=== PATIENT | male | born 1990 | race African-American/Black ===

== ENCOUNTER 2016-09-16 10:01 | Emergency (ER) | payer MEDICAID ==
[~2016-09-16] VITALS: Ht 170.2 cm; Wt 77.1 kg
[2016-09-16 10:21] VITALS: BP 112/76
[2016-09-16] MEDS ORDERED: LIDOCAINE 1% HCL (LOCAL ANESTH.) INJ 20ML MDV IJ ONE (10:45)
[2016-09-16] MEDS ORDERED: TETANUS-DIPTH-ACEL PERTUSSIS 0.5ML SYRG IM ONE (10:45)
[2016-09-16] MEDS ORDERED: BACITRACIN TOP OINT 1 UD PKG TOP ONE (10:45)
== END 2016-09-16 11:21 | disposition home or self-care (01) ==
LOC: ER 10:07
DX: S51.811A Laceration without foreign body of right forearm, initial encounter (principal); W25.XXXA Contact with sharp glass, initial encounter; Y93.89 Activity, other specified; Y99.8 Other external cause status; Y92.89 Other specified places as the place of occurrence of the external cause
CPT/HCPCS: 12002; 90715; 99283; J2001

== ENCOUNTER 2016-09-19 15:58 | Emergency (ER) | payer MEDICAID ==
[~2016-09-19] VITALS: Ht 170.2 cm; Wt 74.8 kg
[2016-09-19 16:35] VITALS: BP 135/78
== END 2016-09-19 18:03 | disposition home or self-care (01) ==
LOC: ER 16:07
DX: S51.811D Laceration without foreign body of right forearm, subsequent encounter (principal); Z48.01 Encounter for change or removal of surgical wound dressing

== ENCOUNTER 2016-10-05 17:06 | Emergency (ER) | payer MEDICAID ==
[~2016-10-05] VITALS: Ht 170.2 cm; Wt 72.6 kg
[2016-10-05 17:37] VITALS: BP 123/64
== END 2016-10-05 17:58 | disposition home or self-care (01) ==
LOC: ER 17:06
DX: S51.811D Laceration without foreign body of right forearm, subsequent encounter (principal); Z48.02 Encounter for removal of sutures

== ENCOUNTER 2021-12-04 06:44 | Emergency (ER) | payer OTHER, MEDICAID ==
[~2021-12-04] VITALS: Ht 172.7 cm; Wt 77.1 kg
[2021-12-04] MEDS ORDERED: levETIRAcetam 500 MG TAB PO ONE (07:45)
[2021-12-04] MEDS ORDERED: MORPHINE SULFATE 4 MG/ML SYR/VIAL IV ONE (08:00)
[2021-12-04] MEDS ORDERED: ONDANSETRON HCL 4 MG/2 ML VIAL IV ONE (08:00)
[2021-12-04] MEDS ORDERED: SODIUM CHLORIDE 0.9% 1,000 ML IV ONE (08:45)
[2021-12-04] MEDS ORDERED: LIDOCAINE 1% HCL (LOCAL ANESTH.) INJ 20ML MDV ID ONE (08:45)
[2021-12-04 12:07] VITALS: BP 121/61
== END 2021-12-04 12:04 | disposition admitted as inpatient to this hospital (09) ==
LOC: EDUNIT# 06:44 → ER 06:44 → EEVIPCON 06:44 → EDBD 06:44 → ER 12:04
DX: S61.412A Laceration without foreign body of left hand, initial encounter (principal); S61.411A Laceration without foreign body of right hand, initial encounter; G40.909 Epilepsy, unspecified, not intractable, without status epilepticus; X58.XXXA Exposure to other specified factors, initial encounter; Y93.89 Activity, other specified; Y92.89 Other specified places as the place of occurrence of the external cause; Y99.8 Other external cause status
CPT/HCPCS: 96361; 96365; 96375; 99284; J1953; J2001; J2270; J2405; J7030; J7060